=== PATIENT | male | born 1995 | race Caucasian/White ===

== ENCOUNTER 2020-01-05 13:10 | Emergency (ER) | payer OTHER, SELFPAY ==
[~2020-01-05] VITALS: Ht 177.8 cm; Wt 83.9 kg
[2020-01-05 14:55] VITALS: BP 134/93
== END 2020-01-05 14:58 | disposition home or self-care (01) ==
LOC: ER 13:10
DX: U07.1 COVID-19 (principal)
CPT/HCPCS: 71045; 87635